=== PATIENT | male | born 2000 | race Caucasian/White ===

== ENCOUNTER 2022-08-01 10:33 | Emergency (ER) | payer MEDICAID ==
[~2022-08-01] VITALS: Ht 190.5 cm; Wt 86.0 kg
[2022-08-01] MEDS ORDERED: HYDR-4902 PO (13:59)
[2022-08-01] MEDS ORDERED: IBUP600T28 PO (13:59)
[2022-08-01 14:00] VITALS: BP 98/62
[2022-08-01] MEDS ORDERED: KETOROLAC TROMETH 30 MG/ML 1ML VIAL IM ONE (14:00)
[2022-08-01] MEDS ORDERED: HYDROcodone-ACET 5/325MG TAB PO ONE (14:00)
[2022-08-01] MEDS ORDERED: ONDANSETRON ODT 4 MG TAB PO ONE (14:30)
== END 2022-08-01 16:03 | disposition home or self-care (01) ==
LOC: ER 10:33
DX: S22.32XA Fracture of one rib, left side, initial encounter for closed fracture (principal); X58.XXXA Exposure to other specified factors, initial encounter; Y93.89 Activity, other specified; Y92.89 Other specified places as the place of occurrence of the external cause; Y99.8 Other external cause status
CPT/HCPCS: 71101; 96372; 99283; J1885; Q0162